=== PATIENT | female | born 1955 | race Hispanic/Latino ===

== ENCOUNTER 2021-04-28 13:04 | Observation (INO) | payer OTHER ==
[~2021-04-28] VITALS: Ht 154.9 cm; Wt 64.0 kg
[2021-04-28] MEDS ORDERED: FENTANYL CITRATE/PF 100MCG/2 ML INJ IV PRN (13:30)
[2021-04-28 13:38] LABS: BASOPHILS % 0.2 % (0.0-1.0); EOSINOPHILS % 0.1 % (0.0-6.0); HEMATOCRIT 40.6 % (34.2-44.1); HEMOGLOBIN 13.1 g/dL (12.0-16.0); LYMPHOCYTES # (AUTO) 1.7 (1.0-3.2); LYMPHOCYTES % 19.2 % (18.0-39.1); MEAN CORPUSCULAR HEMOGLOBIN 29.9 pg (28-32); MEAN CORPUSCULAR HGB CONC 32.3 g/dL (31-35); MEAN CORPUSCULAR VOLUME 92.7 fL (81-99); MONOCYTES # (AUTO) 0.4 (0.2-0.8); MONOCYTES % 3.9 % (4.4-11.3); NEUTROPHILS # (AUTO) 6.9 (2.1-6.9); NEUTROPHILS % 76.2 % (38.7-80.0); PLATELET COUNT 283 x10e3/uL (140-360); RED BLOOD COUNT 4.38 x10e6/uL (3.6-5.1); RED CELL DISTRIBUTION WIDTH 13.6 % (11.7-14.4)
[2021-04-28] MEDS: SODIUM CHLORIDE 0.9% 1000ML 1,000 ML IV SCH ×2 (13:42→13:44)
[2021-04-28] MEDS ORDERED: ONDANSETRON HCL INJ 2MG/ML 2ML 2 MG/ML VIAL IV NR (13:45)
[2021-04-28 13:47] LABS: CLARITY,URINE CLEAR (CLEAR); COLOR,URINE YELLOW (YELLOW); LEUKOCYTE ESTERASE ,URINE NEGATIVE (NEGATIVE); NITRITE,URINE NEGATIVE (NEGATIVE); PROTEIN,URINE DIPSTICK NEGATIVE (NEGATIVE)
[2021-04-28 13:48] LABS: KETONES,URINE NEGATIVE (NEGATIVE); URINE UROBILINOGEN 0.2 mg/dL (0.2 - 1)
[2021-04-28 13:53] LABS: BACTERIA,URINE FEW /HPF; EPITHELIAL CELLS,URINE FEW /LPF; RBC,URINE 0-5 /HPF (0-5); WBC,URINE (MAN) 0-5 /HPF (0-5)
[2021-04-28 13:58] LABS: ALBUMIN 4.1 g/dL (3.5-5.0); ALBUMIN/GLOBULIN RATIO 1.3 (0.8-2.0); ANION GAP 16.9 mmol/L (8-16); CREATININE, SERUM 0.73 mg/dL (0.57-1.11); POTASSIUM 3.9 mmol/L (3.5-5.1)
[2021-04-28] MEDS ORDERED: Morphine 4mg Syringe 4 MG/ML INJ IV PRN (17:15)
[2021-04-28] MEDS ORDERED: ONDANSETRON HCL INJ 2MG/ML 2ML 2 MG/ML VIAL IV PRN (17:15)
[2021-04-28] MEDS ORDERED: SODIUM CHLORIDE 0.9% 1000ML 1,000 ML IV SCH (17:15)
[2021-04-28 20:40] VITALS: BP 138/69
[2021-04-28] MEDS ORDERED: PIPERACILLIN/TAZO 4.5 GM 100 ML IV SCH (21:00)
[2021-04-28] MEDS ORDERED: TRADJENTA5 MG PO (21:06)
[2021-04-28] MEDS ORDERED: ATORVASTATIN CA20 MG PO (21:06)
[2021-04-28] MEDS ORDERED: AMLODIPINE BESYL5 MG PO (21:06)
[2021-04-28] MEDS ORDERED: GLIMEPIRIDE2 MG PO (21:06)
[2021-04-28] MEDS ORDERED: METFORMIN HCL500 M2 PO (21:06)
[2021-04-28] MEDS: PIPERACILLIN/TAZOBACTAM 4.5 GM in SODIUM CHLORIDE 0.9% 100 ML IV ONE ×2 (21:56→22:00)
[2021-04-29] VITALS (8 sets, daily range): BP systolic 100–143; BP diastolic 54–76
[2021-04-29] MEDS ORDERED: TRAMADOL HCL 50 MG TAB PO PRN ×2 (01:30→02:00)
[2021-04-29] MEDS ORDERED: Morphine 2mg Syringe 2 MG/ML SYR IV PRN ×2 (01:30→01:45)
[2021-04-29] MEDS ORDERED: HYDRALAZINE HCL 20 MG/ML VIAL IV PRN ×2 (01:30→01:45)
[2021-04-29] MEDS ORDERED: POTASSIUM CHLORIDE 20 MEQ TAB CR PO PRN ×2 (01:30→02:00)
[2021-04-29] MEDS ORDERED: D5NS/KCL 20MEQ 1,000 ML IV SCH ×2 (01:30→02:00)
[2021-04-29] MEDS ORDERED: ONDANSETRON HCL INJ 2MG/ML 2ML 2 MG/ML VIAL IV PRN ×3 (01:30→10:15)
[2021-04-29] MEDS ORDERED: DEXTROSE 50% SYRINGE 50 ML IV PRN ×3 (01:30→02:00)
[2021-04-29] MEDS ORDERED: MELATONIN 5 MG TABLET PO PRN ×2 (01:30→02:00)
[2021-04-29] MEDS ORDERED: BENZONATATE 100 MG CAP PO PRN ×2 (01:30→02:00)
[2021-04-29] MEDS ORDERED: LIDOCAINE 4% PATCH TP PRN ×2 (01:30→01:45)
[2021-04-29] MEDS ORDERED: ALBUTEROL/IPRATROPIUM 3 ML NEB NEB PRN ×2 (01:30→01:45)
[2021-04-29] MEDS ORDERED: ACETAMINOPHEN 325 MG TAB PO PRN ×2 (01:30→01:45)
[2021-04-29] MEDS ORDERED: SIMETHICONE 80 MG CHEW PO PRN ×2 (01:30→02:00)
[2021-04-29] MEDS ORDERED: DIPHENHYDRAMINE HCL 25 MG CAP PO PRN ×2 (01:30→01:45)
[2021-04-29] MEDS ORDERED: DOCUSATE SODIUM 100 MG CAP PO PRN ×2 (01:30→01:45)
[2021-04-29] MEDS ORDERED: SODIUM CHLORIDE 0.9% 1000ML 1,000 ML IV SCH ×2 (01:45)
[2021-04-29] MEDS ORDERED: ONDANSETRON HCL INJ 2MG/ML 2ML 2 MG/ML VIAL IV NR ×2 (01:45→02:00)
[2021-04-29 05:15] LABS: BASOPHILS % 0.4 % (0.0-1.0); EOSINOPHILS # (AUTO) 0.2 (0.0-0.4); EOSINOPHILS % 3.1 % (0.0-6.0); HEMATOCRIT 35.7 % (34.2-44.1); HEMOGLOBIN 11.5 g/dL (12.0-16.0); LYMPHOCYTES # (AUTO) 1.9 (1.0-3.2); LYMPHOCYTES % 34.6 % (18.0-39.1); MEAN CORPUSCULAR HEMOGLOBIN 29.8 pg (28-32); MEAN CORPUSCULAR HGB CONC 32.2 g/dL (31-35); MEAN CORPUSCULAR VOLUME 92.5 fL (81-99); MONOCYTES # (AUTO) 0.4 (0.2-0.8); MONOCYTES % 6.6 % (4.4-11.3); NEUTROPHILS % 55.1 % (38.7-80.0); PLATELET COUNT 220 x10e3/uL (140-360); RED BLOOD COUNT 3.86 x10e6/uL (3.6-5.1); RED CELL DISTRIBUTION WIDTH 13.9 % (11.7-14.4)
[2021-04-29 05:40] LABS: ALBUMIN 3.2 g/dL (3.5-5.0); ALBUMIN/GLOBULIN RATIO 1.3 (0.8-2.0); ANION GAP 11.5 mmol/L (8-16); CALCIUM 7.6 mg/dL (8.4-10.2); CREATININE, SERUM 0.67 mg/dL (0.57-1.11); MAGNESIUM 1.9 MG/DL (1.3-2.1); POTASSIUM 3.5 mmol/L (3.5-5.1)
[2021-04-29] MEDS: PANTOPRAZOLE SOD 40 MG TABEC PO SCH (07:30)
[2021-04-29] MEDS ORDERED: PANTOPRAZOLE SOD 40 MG TABEC PO SCH (07:30)
[2021-04-29] MEDS ORDERED: PIPERACILLIN/TAZO 4.5 GM 100 ML IV SCH (09:00)
[2021-04-29] MEDS: PIPERACILLIN/TAZO 4.5 GM 100 ML IV SCH ×2 (09:10→20:48)
[2021-04-29] MEDS ORDERED: BUPIVACAINE HCL 0.5% INJ 30 ML VIAL INJ ONE (09:13)
[2021-04-29] MEDS ORDERED: FENTANYL CITRATE/PF 100MCG/2 ML INJ ONE (09:42)
[2021-04-29] MEDS ORDERED: MIDAZOLAM HCL 2 MG/2 ML VIAL ONE (09:43)
[2021-04-29] MEDS ORDERED: HYDROCODONE/APAP 5MG-325MG TAB PO PRN (10:15)
[2021-04-29] MEDS ORDERED: SUGAMMADEX SODIUM 200 MG/2 ML VIAL IV ONE (10:19)
[2021-04-29] MEDS: SODIUM CHLORIDE 0.9% 1000ML 1,000 ML IV SCH ×2 (11:55→20:48)
[2021-04-29] MEDS ORDERED: PROPOFOL IV EMULSION 10 MG/ML 20 ML VIAL ONE (16:42)
[2021-04-29] MEDS ORDERED: LIDOCAINE HCL 2% LOCAL INJ 5 ML SDV VIAL INJ ONE (16:42)
[2021-04-29] MEDS ORDERED: POVIDONE IODINE 0.05% 0.05 % ML PO ONE (16:42)
[2021-04-29] MEDS ORDERED: ROCURONIUM BROMIDE 10 MG/ML 5ML VIAL IV ONE (16:42)
[2021-04-29] MEDS ORDERED: ONDANSETRON HCL INJ 2MG/ML 2ML 2 MG/ML VIAL ONE (16:42)
[2021-04-29] MEDS ORDERED: DEXAMETHASONE SOD PHOS INJ 4 MG/ML SDV ONE (16:42)
[2021-04-29] MEDS ORDERED: SEVOFLURANE INHAL SOLN 250 ML PEN BTL ONE (16:42)
[2021-04-29] MEDS ORDERED: KETOROLAC TROMETHAMINE 30 MG/ML VIAL ONE (16:42)
[2021-04-29] MEDS ORDERED: EPHEDRINE SULFATE INJ 50 MG/ML VIAL ONE (16:42)
[2021-04-29] MEDS ORDERED: INSULIN LISPRO 100 UNIT/1 ML 3ML VIAL SQ STA (21:47)
[2021-04-29] MEDS: KETOROLAC TROMETHAMINE 30 MG/ML VIAL IV PRN (22:44)
[2021-04-30] VITALS: BP 113/58
[2021-04-30 04:00] VITALS: BP 103/60
[2021-04-30] MEDS ORDERED: INSULIN LISPRO 100 UNIT/1 ML 3ML VIAL SQ SCH (07:30)
[2021-04-30 08:00] VITALS: BP 123/63
[2021-04-30] MEDS: PANTOPRAZOLE SOD 40 MG TABEC PO SCH (08:14)
[2021-04-30] MEDS: PIPERACILLIN/TAZO 4.5 GM 100 ML IV SCH (08:58)
[2021-04-30] MEDS: KETOROLAC TROMETHAMINE 30 MG/ML VIAL IV PRN (09:01)
[2021-04-30] MEDS ORDERED: ONDANSETRON HCL 4 MG ORAL DISINTEGRATING TAB PO PRN (10:15)
== END 2021-04-30 11:00 | disposition home or self-care (01) ==
LOC: ER 13:14 → ERHOLD 17:06 → INTOOBSV 17:06 → MED/SURG 18:45
PROVIDERS: ADMIT Internal Medicine; ATTEND Internal Medicine
DX: K80.00 Calculus of gallbladder with acute cholecystitis without obstruction (principal); I10 Essential (primary) hypertension; E11.9 Type 2 diabetes mellitus without complications; E78.5 Hyperlipidemia, unspecified; Z83.3 Family history of diabetes mellitus; Z82.49 Family history of ischemic heart disease and other diseases of the circulatory system; K80.12 Calculus of gallbladder with acute and chronic cholecystitis without obstruction; Z20.822 Contact with and (suspected) exposure to COVID-19
CPT/HCPCS: 36415 ×3; 47562; 76705; 80053 ×2; 81001; 82948 ×3; 83605; 83690; 83735; 84484; 85025 ×2; 87040; 88304; 93005; 94799 ×3; 99284; C9113; G0378 ×3; J1100; J1885 ×2; J2001; J2250; J2405 ×2; J2543 ×3; J2704; J3010 ×2; J7030 ×2; J7050; S0164; U0002